=== PATIENT | male | born 1955 | race Caucasian/White ===

== ENCOUNTER 2023-08-09 13:30 | Emergency (ER) | payer MEDICARE, OTHER ==
[~2023-08-09] VITALS: Ht 170.2 cm; Wt 90.9 kg
[2023-08-09 13:34] VITALS: TEMP 97.7
[2023-08-09] MEDS ORDERED: FLEXERIL 1010 MG/TAB PO (14:17)
[2023-08-09 15:49] VITALS: BP 135/68; PULSE 74
[2023-08-09] MEDS ORDERED: PERCOCET 325 MG1 TA2 PO (17:26)
== END 2023-08-09 19:00 | disposition home or self-care (01) ==
LOC: COL.ER 13:30
DX: M54.42 Lumbago with sciatica, left side (principal)
CPT/HCPCS: J1885; J2360; J3010